=== PATIENT | female | born 1970 | race Native Hawaiian/Other Pacific Islander ===

== ENCOUNTER 2018-07-22 10:35 | Outpatient (CLI) | payer OTHER ==
[2018-07-22 16:29] LABS: PLATELET COUNT 216 K/uL (152-353)
[2018-07-22 16:54] LABS: POTASSIUM 3.6 mmol/L (3.6-5.2)
== END 2018-07-22 19:53 | disposition home or self-care (01) ==
LOC: LABW 10:35
PROVIDERS: Emergency Medicine
DX: F41.8 Other specified anxiety disorders (principal); I10 Essential (primary) hypertension; M13.88 Other specified arthritis, other site; G89.4 Chronic pain syndrome; G47.00 Insomnia, unspecified
CPT/HCPCS: 36415; 80053; 80061; 84439; 84443; 85027; 85651; 86430

== ENCOUNTER 2018-11-25 15:16 | Outpatient (CLI) | payer OTHER | END 2018-11-25 20:09 | disposition home or self-care (01) | LOC: RAD 15:16 | DX: M06.9 Rheumatoid arthritis, unspecified (principal) ==

== ENCOUNTER 2018-12-08 05:43 | Outpatient (CLI) | payer OTHER ==
[2018-12-08 06:11] LABS: PLATELET COUNT 268 K/uL (152-353)
== END 2018-12-08 20:14 | disposition home or self-care (01) ==
LOC: LABW 05:43
PROVIDERS: Emergency Medicine
DX: R68.89 Other general symptoms and signs (principal); M06.9 Rheumatoid arthritis, unspecified; R70.0 Elevated erythrocyte sedimentation rate
CPT/HCPCS: 85027; 85651; 86430

== ENCOUNTER 2019-01-06 15:44 | Outpatient (CLI) | payer OTHER | END 2019-01-06 23:07 | disposition home or self-care (01) | LOC: RAD 15:44 | DX: G89.4 Chronic pain syndrome (principal); M19.90 Unspecified osteoarthritis, unspecified site ==

== ENCOUNTER 2019-03-05 09:16 | Outpatient (CLI) | payer OTHER | END 2019-03-05 23:38 | disposition home or self-care (01) | LOC: RAD 09:16 | DX: M24.811 Other specific joint derangements of right shoulder, not elsewhere classified (principal); S46.091A Other injury of muscle(s) and tendon(s) of the rotator cuff of right shoulder, initial encounter; G89.29 Other chronic pain; F41.8 Other specified anxiety disorders; M75.51 Bursitis of right shoulder ==

== ENCOUNTER 2020-08-16 21:56 | Emergency (ER) | payer OTHER ==
[~2020-08-16] VITALS: Ht 154.9 cm; Wt 65.3 kg
[2020-08-16 23:04] VITALS: BP 122/64; TEMP 98
== END 2020-08-16 23:04 | disposition home or self-care (01) ==
LOC: ED 21:56
DX: H65.192 Other acute nonsuppurative otitis media, left ear (principal); H60.8X2 Other otitis externa, left ear; B95.62 Methicillin resistant Staphylococcus aureus infection as the cause of diseases classified elsewhere
CPT/HCPCS: 99283

== ENCOUNTER 2023-03-05 20:28 | Emergency (ER) | payer OTHER ==
[~2023-03-05] VITALS: Ht 154.9 cm; Wt 67.1 kg
[2023-03-05 20:58] LABS: PLATELET COUNT 249 K/uL (152-353)
[2023-03-05 21:00] VITALS: TEMP 97
[2023-03-05 21:04] LABS: POTASSIUM 3.6 mmol/L (3.6-5.2)
[2023-03-05 22:45] VITALS: BP 133/87
== END 2023-03-05 22:45 | disposition home or self-care (01) ==
LOC: ED 20:28
PROVIDERS: Internal Medicine
DX: F41.9 Anxiety disorder, unspecified (principal); F17.210 Nicotine dependence, cigarettes, uncomplicated
CPT/HCPCS: 80053; 81002; 85027; 99282